=== PATIENT | female | born 1985 | race Caucasian/White ===

== ENCOUNTER 2023-11-05 08:18 | Emergency (ER) | payer OTHER, SELFPAY ==
[2023-11-05] VITALS (54 sets, daily range): BP systolic 87–143; BP diastolic 50–84; PULSE 62–98; RESP 7–29; TEMP 36.7; O2SAT 96–100; BMI 30.1
--- NOTE | 2023-11-05 08:38 | DI.RAD.S_ITS ---
PROCEDURE: XR CHEST 1V INDICATIONS: Shortness of breath TECHNIQUE: One view of the chest was acquired. COMPARISON: None. FINDINGS: Surgical changes and devices: None. Lungs and pleura: Lungs are clear. No pleural effusions or pneumothorax. Mediastinum: Mediastinal contours appear normal. Heart size is normal. Bones and chest wall: No suspicious bony lesions. Overlying soft tissues appear unremarkable. IMPRESSION: No acute cardiopulmonary abnormality is seen. Dictated by: Melquiades León M.D. on 11/05/2023 at 9:10 Approved by: Melquiades León M.D. on 11/05/2023 at 9:11
--- NOTE | 2023-11-05 09:18 | ED_ITS ---
HPI - General Adult General Chief complaint: Shortness of Breath/Dyspnea Stated complaint: Shortness of breath, Kidneys are hurting Time Seen by Provider: 11/05/23 08:21 Source: patient and family Mode of arrival: Wheelchair History of Present Illness HPI narrative: Patient is a 38-year-old female. Two weeks ago she was diagnosed with a urinary tract infection. She was started on Keflex. She stated that she actually missed a couple doses of the medicine and did not completely finish the course however all of her urinary symptoms have resolved. She is having some kidney pain. No fevers. No vomiting. She also stating that she was having some shortness of breath. No abdominal pain. No change in bowel habits. No skin rashes. She has had multiple episodes over the past several weeks/months of feeling very lightheaded and dizzy. She stated that she has been seen before. She states that her heart rate drops and also her blood pressure drops. She has not followed up with Cardiology. Initially she reported that it seems to be associated with getting blood drawn but there was a episode about 1 week ago when she was driving where she became lightheaded. Related Data Allergies Allergy/AdvReac Type Severity Reaction Status Date / Time No Known Drug Allergies Allergy Verified 11/05/23 08:39 Review of Systems Review of Systems ROS Unobtainable: All systems reviewed & are unremarkable except as noted in HPI and below Patient History Social History Smoking Status: Never smoker Smoking Status: Never smoker alcohol intake frequency: other Substance Use Type: does not use Exam Initial Vital Signs Initial Vital Signs: Vital Signs Pulse Rate 85 11/05/23 08:38 Pulse Oximetry 97 11/05/23 08:38 HENMT Head: normal to inspection and normocephalic Resp Effort & Inspection: normal respiratory effort Auscultation: clear to auscultation bilaterally Cardio Rate: regular rate Rhythm: regular rhythm GI Inspection: normal to inspection and non-distended Skin General: no rashes or lesions noted Neuro General: patient alert, patient awake, patient oriented x3 and moves all extremities Extrem General: normal to inspection and capillary refill normal Course Orders Ordered: ED Orders 11/05/23 08:38 XR chest 1V Stat 11/05/23 09:19 EKG-12 Lead Stat 11/05/23 09:22 Complete Blood Count AUTO DIFF Stat Comprehensive Metabolic Panel Stat Lactate (Lactic Acid) Stat Lipase Stat Procalcitonin Stat 11/05/23 09:40 Blood Culture Stat 11/05/23 09:46 Covid-19 + FLU A/B + RSV - PCR Stat 11/05/23 10:55 Urine Culture Stat Urine Microscopic Stat 11/05/23 11:45 CT abdomen pelvis w con Stat Discontinued Medications Sodium Chloride (Normal Saline 0.9%) 1,000 mls @ 1,000 mls/hr IV BOLUS ONE Stop: 11/05/23 10:18 Last Infusion: 11/05/23 09:53 Dose: Infused Documented By: Admin: 11/05/23 09:25 Dose: 1,000 mls/hr Documented By: RB Ketorolac Tromethamine (Ketorolac 30 Mg/Ml Vial) 30 mg IV NOW ONE Stop: 11/05/23 11:37 Last Admin: 11/05/23 11:46 Dose: 30 mg Documented By: SAM Vital Signs Vital signs: Vital Signs - 8 hr 11/05/23 08:38 11/05/23 08:39 11/05/23 09:00 Temperature 98.0 F Pulse Rate 85 82 83 Respiratory Rate 18 18 Blood Pressure 143/84 H Pulse Oximetry 97 98 97 Oxygen Delivery Method Room Air 11/05/23 09:18 11/05/23 09:18 11/05/23 09:21 Temperature Pulse Rate 64 69 Respiratory Rate Blood Pressure 87/51 L Pulse Oximetry 97 100 Oxygen Delivery Method 11/05/23 09:21 11/05/23 09:30 11/05/23 09:33 Temperature Pulse Rate 69 Respiratory Rate 20 Blood Pressure 100/57 L 104/63 Pulse Oximetry 100 Oxygen Delivery Method 11/05/23 09:33 11/05/23 09:35 11/05/23 09:35 Temperature Pulse Rate 77 69 Respiratory Rate 15 25 H Blood Pressure 113/68 Pulse Oximetry 100 99 Oxygen Delivery Method 11/05/23 09:40 11/05/23 09:40 11/05/23 09:45 Temperature Pulse Rate 79 Respiratory Rate 25 H Blood Pressure 119/71 129/74 Pulse Oximetry 100 Oxygen Delivery Method 11/05/23 09:45 11/05/23 09:50 11/05/23 09:50 Temperature Pulse Rate 98 H 75 Respiratory Rate 16 16 Blood Pressure 124/65 Pulse Oximetry 97 100 Oxygen Delivery Method 11/05/23 09:55 11/05/23 09:55 11/05/23 10:00 Temperature Pulse Rate 82 Respiratory Rate 10 L Blood Pressure 130/70 130/67 Pulse Oximetry 100 Oxygen Delivery Method 11/05/23 10:00 11/05/23 10:05 11/05/23 10:05 Temperature Pulse Rate 77 73 Respiratory Rate 17 16 Blood Pressure 130/69 Pulse Oximetry 100 98 Oxygen Delivery Method 11/05/23 10:10 11/05/23 10:10 11/05/23 10:15 Temperature Pulse Rate 73 Respiratory Rate 13 Blood Pressure 126/66 120/63 Pulse Oximetry 100 Oxygen Delivery Method 11/05/23 10:15 11/05/23 10:20 11/05/23 10:20 Temperature Pulse Rate 84 81 Respiratory Rate 15 16 Blood Pressure 117/62 Pulse Oximetry 97 97 Oxygen Delivery Method 11/05/23 10:25 11/05/23 10:25 11/05/23 10:30 Temperature Pulse Rate 80 Respiratory Rate 13 Blood Pressure 117/60 121/59 L Pulse Oximetry 97 Oxygen Delivery Method 11/05/23 10:30 11/05/23 10:35 11/05/23 10:35 Temperature Pulse Rate 81 88 Respiratory Rate 14 16 Blood Pressure 122/62 Pulse Oximetry 98 98 Oxygen Delivery Method 11/05/23 10:40 11/05/23 10:40 11/05/23 10:50 Temperature Pulse Rate 75 Respiratory Rate 13 Blood Pressure 118/59 L 127/69 Pulse Oximetry 97 Oxygen Delivery Method 11/05/23 10:50 11/05/23 10:55 11/05/23 10:55 Temperature Pulse Rate 88 86 Respiratory Rate 13 12 Blood Pressure 125/80 Pulse Oximetry 99 98 Oxygen Delivery Method 11/05/23 11:00 11/05/23 11:00 11/05/23 11:05 Temperature Pulse Rate 87 Respiratory Rate 15 Blood Pressure 122/74 121/68 Pulse Oximetry 97 Oxygen Delivery Method 11/05/23 11:05 11/05/23 11:10 11/05/23 11:10 Temperature Pulse Rate 90 86 Respiratory Rate 21 7 L Blood Pressure 120/67 Pulse Oximetry 96 98 Oxygen Delivery Method 11/05/23 11:15 11/05/23 11:15 11/05/23 11:20 Temperature Pulse Rate 89 Respiratory Rate 14 Blood Pressure 117/68 114/69 Pulse Oximetry 97 Oxygen Delivery Method 11/05/23 11:20 11/05/23 11:25 11/05/23 11:25 Temperature Pulse Rate 89 88 Respiratory Rate 13 16 Blood Pressure 120/72 Pulse Oximetry 97 98 Oxygen Delivery Method Room Air 11/05/23 11:30 11/05/23 11:30 11/05/23 11:35 Temperature Pulse Rate 81 Respiratory Rate 14 Blood Pressure 121/71 113/63 Pulse Oximetry 98 Oxygen Delivery Method 11/05/23 11:35 11/05/23 11:40 11/05/23 11:40 Temperature Pulse Rate 81 79 Respiratory Rate 15 15 Blood Pressure 113/65 Pulse Oximetry 99 99 Oxygen Delivery Method 11/05/23 11:45 11/05/23 11:45 11/05/23 11:51 Temperature Pulse Rate 79 75 Respiratory Rate 15 18 Blood Pressure 117/69 Pulse Oximetry 99 99 Oxygen Delivery Method 11/05/23 11:51 11/05/23 11:55 11/05/23 11:55 Temperature Pulse Rate 80 Respiratory Rate 18 Blood Pressure 110/68 111/72 Pulse Oximetry 98 Oxygen Delivery Method 11/05/23 12:00 11/05/23 12:00 11/05/23 12:20 Temperature Pulse Rate 82 Respiratory Rate 16 Blood Pressure 114/78 118/63 Pulse Oximetry 99 Oxygen Delivery Method 11/05/23 12:20 11/05/23 12:25 11/05/23 12:25 Temperature Pulse Rate 87 80 Respiratory Rate 11 L 11 L Blood Pressure 109/57 L Pulse Oximetry 98 99 Oxygen Delivery Method 11/05/23 12:30 11/05/23 12:31 11/05/23 12:31 Temperature Pulse Rate 73 71 Respiratory Rate 22 12 Blood Pressure 110/63 Pulse Oximetry 98 99 Oxygen Delivery Method 11/05/23 12:35 11/05/23 12:35 11/05/23 12:40 Temperature Pulse Rate 69 Respiratory Rate 11 L Blood Pressure 112/70 109/67 Pulse Oximetry 99 Oxygen Delivery Method Room Air 11/05/23 12:40 11/05/23 12:45 11/05/23 12:45 Temperature Pulse Rate 74 74 Respiratory Rate 12 10 L Blood Pressure 111/67 Pulse Oximetry 98 99 Oxygen Delivery Method 11/05/23 12:50 11/05/23 12:50 11/05/23 12:56 Temperature Pulse Rate 75 72 Respiratory Rate 29 H 17 Blood Pressure 120/69 Pulse Oximetry 99 100 Oxygen Delivery Method 11/05/23 12:56 11/05/23 13:00 11/05/23 13:06 Temperature Pulse Rate 70 Respiratory Rate 17 Blood Pressure 106/55 L 104/56 L Pulse Oximetry 97 Oxygen Delivery Method 11/05/23 13:06 11/05/23 13:10 11/05/23 13:10 Temperature Pulse Rate 72 73 Respiratory Rate 12 17 Blood Pressure 107/60 Pulse Oximetry 97 98 Oxygen Delivery Method 11/05/23 13:15 11/05/23 13:15 11/05/23 13:20 Temperature Pulse Rate 62 Respiratory Rate 15 Blood Pressure 108/55 L 98/51 L Pulse Oximetry 98 Oxygen Delivery Method 11/05/23 13:20 11/05/23 13:25 11/05/23 13:25 Temperature Pulse Rate 67 67 Respiratory Rate 19 15 Blood Pressure 95/50 L Pulse Oximetry 97 96 Oxygen Delivery Method 11/05/23 13:30 11/05/23 13:31 11/05/23 13:31 Temperature Pulse Rate 78 73 Respiratory Rate 17 16 Blood Pressure 109/58 L Pulse Oximetry 96 96 Oxygen Delivery Method 11/05/23 13:35 11/05/23 13:35 Temperature Pulse Rate 73 Respiratory Rate 17 Blood Pressure 107/55 L Pulse Oximetry 96 Oxygen Delivery Method Room Air Medical Decision Making Lab Data Lab results reviewed: Yes I reviewed the patient's lab results. 11/05/23 09:22 11/05/23 09:22 Labs: Lab Results 11/05/23 11/05/23 11/05/23 Range/Units 09:22 09:46 10:55 WBC 7.8 (4.5-11.0) X10^3/uL RBC 4.78 (4.0-5.2) X10^6/uL Hgb 14.1 (12.0-16.0) g/dL Hct 41.4 (36-46) % MCV 86.4 (80-100) fL MCH 29.5 (26-34) PG MCHC 34.1 (30-36) % RDW 13.2 (11.6-14.8) % Plt Count 262 (150-400) X10^3/uL Neut % (Auto) 63.9 (50-75) % Lymph % (Auto) 21.7 L (25-40) % [place] % (Auto) 9.1 (3-14) % Eos % (Auto) 4.9 H (2-4) % Baso % (Auto) 0.4 (0-2) % Neut # (Auto) 5000 (2381-4967) /uL Lymph # (Auto) 1700 (2332-6073) /uL [place] # (Auto) 700 (0-900) /uL Eos # (Auto) 400 (0-450) /uL Baso # (Auto) 0 (0-100) /uL Sodium 139 (137-145) mmol/L Potassium 3.7 (3.4-5.1) mmol/L Chloride 107 (98-107) mmol/L Carbon Dioxide 25 (22-32) mmol/L BUN 10 (7-17) mg/dL Creatinine 0.47 L (0.52-1.04) mg/dL Estimated GFR > 60 (>60) mL/min BUN/Creatinine Ratio 21.3 (6-22) Glucose 128 H (70-100) mg/dL Lactate 1.4 (0.7-2.1) mmol/L Calcium 9.2 (8.4-10.2) mg/dL Total Bilirubin 0.6 (0.2-1.3) mg/dL AST 37 H (14-36) IU/L ALT 51 H (<35) IU/L Alkaline Phosphatase 69 (38-126) U/L Total Protein 8.1 (6.3-8.2) g/dL Albumin 4.8 (3.5-5.0) g/dL Globulin 3.3 (1.7-4.1) g/dL Albumin/Globulin Ratio 1.5 (1.0-2.8) Lipase 39 (23-300) U/L Procalcitonin 0.04 (<0.5) ng/mL Urine RBC None seen (0-5/HPF) Urine WBC 5-10/hpf H (0-5/HPF) Ur Squamous Epith Cells 1-5 /hpf (0-5/HPF) Urine Bacteria None seen (None) Ur Culture Indicated? Specimen cultured Vol Urine Centrifuged 10ml (spun) SARS-CoV-2 (PCR) Negative (Negative) Influenza A (RT-PCR) Flu a negative (NEGATIVE) Influenza B (RT-PCR) Flu b negative (NEGATIVE) RSV (PCR) Negative (Negative) Point of Care Testing Test Results Negative Urine Dip Bedside Urine Glucose Negative Bedside Urine Bilirubin - Negative Bedside Urine Ketone - Negative Urine Specific [place] 1.015 Bedside Urine Occult Blood - Negative Bedside Urine pH 7.5 Bedside Urine Protein - Negative Bedside Urine Urobilinogen - Negative Bedside Urine Nitrite - Negative Bedside Urine Leukocytes + 70 Esterase Point of care testing: Point of Care Testing Test Results Negative Urine Dip Bedside Urine Glucose Negative Bedside Urine Bilirubin - Negative Bedside Urine Ketone - Negative Urine Specific [place] 1.015 Bedside Urine Occult Blood - Negative Bedside Urine pH 7.5 Bedside Urine Protein - Negative Bedside Urine Urobilinogen - Negative Bedside Urine Nitrite - Negative Bedside Urine Leukocytes + 70 Esterase Imaging Data Chest x-ray: Radiologist's Impression: PROCEDURE: XR CHEST 1V INDICATIONS: Shortness of breath TECHNIQUE: One view of the chest was acquired. COMPARISON: None. FINDINGS: Surgical changes and devices: None. Lungs and pleura: Lungs are clear. No pleural effusions or pneumothorax. Mediastinum: Mediastinal contours appear normal. Heart size is normal. Bones and chest wall: No suspicious bony lesions. Overlying soft tissues appear unremarkable. IMPRESSION: No acute cardiopulmonary abnormality is seen. CT scan - abdomen/pelvis: Radiologist's Impression: PROCEDURE: CT ABDOMEN PELVIS W CON INDICATIONS: RLQ pain and flank pain TECHNIQUE: After the administration of intravenous contrast, axial sections acquired from the lung bases to the pubic symphysis. Coronal and sagittal reformats were performed. For radiation dose reduction, the following was used: automated exposure control, adjustment of mA and/or kV according to patient size. COMPARISON: None. FINDINGS: Image quality: Diagnostic. Lower Chest: No significant findings. ABDOMEN: Liver: No solid mass. Very mild diffuse hepatic steatosis. Gallbladder: Numerous gallstones are present in the gallbladder. Gallbladder is not abnormally distended and there is no wall thickening. There is no fluid around the gallbladder. Biliary ducts: No biliary dilation. Pancreas: No ductal dilation. Spleen: Size is within normal limits. Adrenal Glands: No adrenal nodules. Kidneys and Ureters: No hydronephrosis. No solid mass. No complex renal cystic lesion which requires follow up. Stomach and Bowel: Normal colonic caliber, without significant wall thickening. Surgical absence of the appendix. Moderate fecal load. Peritoneum: No abnormal intraperitoneal fluid. No free air. Ventral Wall: No significant ventral hernia. Abdominal Nodes: No retroperitoneal or mesenteric adenopathy by size criteria. Vessels: Aorta and inferior vena cava are normal in size. PELVIS: Pelvic Organs: Unremarkable. Bladder: No bladder wall thickening, accounting for underdistention. Pelvic Nodes: No enlarged lymph nodes. Miscellaneous: No inguinal hernias are seen. Bones: No aggressive osseous abnormality. Chronic mild disc protrusion at L5-S1 without significant canal stenosis. IMPRESSION: 1. Cholelithiasis without evidence of cholecystitis. 2. Remote appendectomy. 3. No acute abdominal process noted ECG Data Attestation: I personally reviewed and interpreted this ECG as follows: Interpretation: Sinus rhythm Ventricular rate is 79 Normal axis Normal QRS Normal QTC No ST T wave changes MDM Narrative Medical decision making narrative: Workup here in the emergency department is very reassuring. I have low suspicion that she is pyelonephritis. She does have gallstones on the CT scan but no other signs of acute cholecystitis. She was afebrile. The urine culture was pending and we will hold on starting any antibiotics until his culture results. No signs of pneumonia. She did have an episode here in the ER where she became bradycardic and hypotensive. She recovered from this on her own. It appears that she has had some prior episodes of this with 1 potentially being when she was driving. She has had a Holter monitor in the past but that was years ago. Her workup here in the emergency department does not give a specific etiology however there does not appear to be a infectious or surgical process. I did recommend that she contact her primary doctor as she most likely benefit from a referral to see Cardiology. She was given return precautions and follow- up instructions. She expressed understanding and agreement. Discharge Plan Departure Patient Disposition: Home Clinical Impression: Abdominal pain, Shortness of breath, Episodic lightheadedness Instructions: DI for Abdominal Pain-Adult Activity Restrictions/Additional Instructions: Your workup here in the emergency department is very reassuring. There is a urine culture pending at the time of your discharge and we will contact you if we need to restart any antibiotics. I do think that you need to follow-up with cardiology. You can talk with your primary doctor's note referral. Return to the emergency department for new or worsening symptoms. Referrals: Provider,Madeleine MARIE [Primary Care Provider] - Precious Barahona MD [Physician] - Stand Alone Forms: Patient Portal/API
[2023-11-05] MEDS: SODIUM CHLORIDE 0.9% 1,000 ML 1000 ML IV (09:25)
[2023-11-05 09:36] LABS: Add Manual Diff / Slide Review NO; Basophils Absolute Auto 0 /uL (0-100); Basophils Percent Auto 0.4 % (0-2); Eosinophils Absolute Auto 400 /uL (0-450); Eosinophils Percent Auto 4.9 % (2-4); Hematocrit 41.4 % (36-46); Hemoglobin 14.1 g/dL (12.0-16.0); Lymphocytes Absolute Auto 1700 /uL (1100-4500); Lymphocytes Percent Auto 21.7 % (25-40); Mean Corpuscular HGB Conc 34.1 % (30-36); Mean Corpuscular Hemoglobin 29.5 PG (26-34); Mean Corpuscular Volume 86.4 fL (80-100); Monocytes Absolute Auto 700 /uL (0-900); Monocytes Percent Auto 9.1 % (3-14); Neutrophils Absolute Auto 5000 /uL (1500-7000); Neutrophils Percent Auto 63.9 % (50-75); Platelet Count 262 X10^3/uL (150-400); Red Blood Cell Count 4.78 X10^6/uL (4.0-5.2); Red Cell Distribution Width 13.2 % (11.6-14.8); White Blood Cell Count 7.8 X10^3/uL (4.5-11.0)
[2023-11-05 09:47] LABS: Lactate (Lactic Acid) 1.4 mmol/L (0.7-2.1)
[2023-11-05 09:49] LABS: Alanine Aminotransferase 51 IU/L (<35); Albumin 4.8 g/dL (3.5-5.0); Albumin Globulin Ratio 1.5 (1.0-2.8); Alkaline Phosphatase 69 U/L (38-126); Aspartate Aminotransferase 37 IU/L (14-36); BUN Creatinine Ratio 21.3 (6-22); Bilirubin Total 0.6 mg/dL (0.2-1.3); Blood Urea Nitrogen 10 mg/dL (7-17); Calcium 9.2 mg/dL (8.4-10.2); Carbon Dioxide 25 mmol/L (22-32); Chloride 107 mmol/L (98-107); Estimated Glomerular Filt Rate > 60 mL/min (>60); Globulin 3.3 g/dL (1.7-4.1); Glucose 128 mg/dL (70-100); HEMOLYSIS 23 (0-50); Lipase 39 U/L (23-300); Potassium 3.7 mmol/L (3.4-5.1); Sodium 139 mmol/L (137-145); Total Protein 8.1 g/dL (6.3-8.2)
[2023-11-05 10:04] LABS: Procalcitonin 0.04 ng/mL (<0.5)
[2023-11-05 10:27] LABS: Influenza A - CEPHEID Flu A NEGATIVE (NEGATIVE); Influenza B - CEPHEID Flu B NEGATIVE (NEGATIVE); Respiratory Syncytial Virus Negative (Negative)
[2023-11-05 10:28] LABS: COVID-19 CEPHEID 4-PLEX PCR Negative (Negative)
[2023-11-05 11:06] LABS: Urine Volume 10mL (spun)
[2023-11-05 11:07] LABS: Bacteria Urine None Seen; Culture Indicated Urine Specimen Cultured; RBC Urine None Seen (0-5/HPF); Squamous Epithelial Cell Urine 1-5 /HPF (0-5/HPF); WBC Urine 5-10/HPF (0-5/HPF)
--- NOTE | 2023-11-05 11:45 | DI.CT.S_ITS ---
PROCEDURE: CT ABDOMEN PELVIS W CON INDICATIONS: RLQ pain and flank pain TECHNIQUE: After the administration of intravenous contrast, axial sections acquired from the lung bases to the pubic symphysis. Coronal and sagittal reformats were performed. For radiation dose reduction, the following was used: automated exposure control, adjustment of mA and/or kV according to patient size. COMPARISON: None. FINDINGS: Image quality: Diagnostic. Lower Chest: No significant findings. ABDOMEN: Liver: No solid mass. Very mild diffuse hepatic steatosis. Gallbladder: Numerous gallstones are present in the gallbladder. Gallbladder is not abnormally distended and there is no wall thickening. There is no fluid around the gallbladder. Biliary ducts: No biliary dilation. Pancreas: No ductal dilation. Spleen: Size is within normal limits. Adrenal Glands: No adrenal nodules. Kidneys and Ureters: No hydronephrosis. No solid mass. No complex renal cystic lesion which requires follow up. Stomach and Bowel: Normal colonic caliber, without significant wall thickening. Surgical absence of the appendix. Moderate fecal load. Peritoneum: No abnormal intraperitoneal fluid. No free air. Ventral Wall: No significant ventral hernia. Abdominal Nodes: No retroperitoneal or mesenteric adenopathy by size criteria. Vessels: Aorta and inferior vena cava are normal in size. PELVIS: Pelvic Organs: Unremarkable. Bladder: No bladder wall thickening, accounting for underdistention. Pelvic Nodes: No enlarged lymph nodes. Miscellaneous: No inguinal hernias are seen. Bones: No aggressive osseous abnormality. Chronic mild disc protrusion at L5-S1 without significant canal stenosis. IMPRESSION: 1. Cholelithiasis without evidence of cholecystitis. 2. Remote appendectomy. 3. No acute abdominal process noted. Dictated by: Brennen Snider M.D. on 11/05/2023 at 12:26 Approved by: Brennen Snider M.D. on 11/05/2023 at 12:29
[2023-11-05] MEDS: KETOROLAC 30 MG/ML VIAL IV (11:46)
== END 2023-11-05 14:00 | disposition home or self-care (01) ==
PROVIDERS: Emergency Provider Emergency Medicine
DX: R10.31 Right lower quadrant pain (principal); R06.02 Shortness of breath; R42 Dizziness and giddiness; I95.9 Hypotension, unspecified; Z20.822 Contact with and (suspected) exposure to COVID-19
CPT/HCPCS: 0241U; 36415; 71045; 74177; 80053; 81003; 81015; 81025; 83605; 83690; 84145; 85025; 87040; 87086; 93005; 93010; 96374; 99284; J1885; Q9967

== ENCOUNTER 2023-11-12 09:14 | Emergency (ER) | payer OTHER, SELFPAY ==
[2023-11-12 09:24] VITALS: BP 118/74; PULSE 84; RESP 18; TEMP 36.4; O2SAT 98; BMI 30.4
--- NOTE | 2023-11-12 10:07 | ED_ITS ---
HPI - General Adult General Chief complaint: Urogenital-Female Stated complaint: UTI/ Yeast infection ,Ovarian pain both sides Time Seen by Provider: 11/12/23 09:54 History of Present Illness HPI narrative: 38-year-old woman with no significant medical history presents with 3 days of ongoing significant malaise, lower abdominal pain, bilateral flank pain. She was concerned she had a urinary tract infection was seen at [facility] started on Keflex developed a vaginal yeast infection that has since been treated with fluconazole. She was seen in our emergency department on November 04. work uip was unremarkable with no UTI, negative blood cultures, normal chest x- ray, CT scan of the abdomen did not show any acute findings. She has had her appendix out, gallbladder did have gallstones but did not appear to be acutely inflamed, diverticulosis without diverticulitis. She comes in today with persistent symptoms overall general malaise the point that she is unable to get out of bed and be functional. Chest x-ray did not suggest cardiopulmonary pathology, no cardiomegaly. She does not describe recent viral infections Related Data Previous Rx's Medication Instructions Recorded doxycycline hyclate 100 mg capsule 100 mg PO BID #20 caps 11/12/23 Allergies Allergy/AdvReac Type Severity Reaction Status Date / Time No Known Drug Allergies Allergy Verified 11/05/23 08:39 Review of Systems Review of Systems Narrative: Pertinent positive and negative findings as per HPI Patient History Social History Smoking Status: Never smoker Smoking Status: Never smoker alcohol intake frequency: other Substance Use Type: does not use Exam Initial Vital Signs Initial Vital Signs: Vital Signs Temperature 97.6 F 11/12/23 09:24 Pulse Rate 84 11/12/23 09:24 Respiratory Rate 18 11/12/23 09:24 Blood Pressure 118/74 11/12/23 09:24 Pulse Oximetry 98 11/12/23 09:24 Oxygen Delivery Method Room Air 11/12/23 09:24 General: Healthy appearing, fatigued appearing but in no acute distress. Able to give a complete and coherent history. Well-nourished well-developed HEENT: Moist mucous membranes, normal sclera with reactive pupils, Neck: No cervical adenopathy Respiratory: Lungs are clear to auscultation, no wheezing no rales no rhonchi. Full and symmetrical air movement Cardiac: Regular rate and rhythm no murmurs no bruits Abdomen: Soft, minor tenderness in the lower abdomen without rebound or guarding. No flank pain Skin: Warm and dry, no rashes Neurologic: Globally weak but otherwise Grossly neurologically intact with no obvious asymmetries or abnormalities Extremities: No trauma, well perfused Psych: Cooperative, appropriate insight and affect Course Orders Ordered: ED Orders 11/12/23 10:22 CT head/brain wo con Stat 11/12/23 10:43 Complete Blood Count AUTO DIFF Stat Comprehensive Metabolic Panel Stat Lactate (Lactic Acid) Stat Lipase Stat Magnesium Stat NT-proBNP (BNP-Adult 18+) Stat TSH w/ Reflex to FT4 Stat Discontinued Medications Sodium Chloride (Normal Saline 0.9%) 1,000 mls @ 1,000 mls/hr IV BOLUS ONE Stop: 11/12/23 11:20 Last Infusion: 11/12/23 11:55 Dose: Infused Documented By: Admin: 11/12/23 10:43 Dose: 1,000 mls/hr Documented By: IMANI Vital Signs Vital signs: Vital Signs - 8 hr 11/12/23 09:24 Temperature 97.6 F Pulse Rate 84 Respiratory Rate 18 Blood Pressure 118/74 Pulse Oximetry 98 Oxygen Delivery Method Room Air Medical Decision Making Lab Data 11/12/23 10:43 11/12/23 10:43 Labs: Lab Results 11/12/23 Range/Units 10:43 WBC 11.1 H (4.5-11.0) X10^3/uL RBC 4.65 (4.0-5.2) X10^6/uL Hgb 13.8 (12.0-16.0) g/dL Hct 40.2 (36-46) % MCV 86.5 (80-100) fL MCH 29.7 (26-34) PG MCHC 34.3 (30-36) % RDW 13.1 (11.6-14.8) % Plt Count 256 (150-400) X10^3/uL Neut % (Auto) 77.2 H (50-75) % Lymph % (Auto) 14.0 L (25-40) % Newberry % (Auto) 6.6 (3-14) % Eos % (Auto) 1.9 L (2-4) % Baso % (Auto) 0.3 (0-2) % Neut # (Auto) 8600 H (4015-4145) /uL Lymph # (Auto) 1600 (4093-1968) /uL Newberry # (Auto) 700 (0-900) /uL Eos # (Auto) 200 (0-450) /uL Baso # (Auto) 0 (0-100) /uL Sodium 137 (137-145) mmol/L Potassium 4.0 (3.4-5.1) mmol/L Chloride 109 H (98-107) mmol/L Carbon Dioxide 20 L (22-32) mmol/L BUN 13 (7-17) mg/dL Creatinine 0.53 (0.52-1.04) mg/dL Estimated GFR > 60 (>60) mL/min BUN/Creatinine Ratio 24.5 H (6-22) Glucose 115 H (70-100) mg/dL Lactate 1.2 (0.7-2.1) mmol/L Calcium 8.9 (8.4-10.2) mg/dL Magnesium 2.1 (1.6-2.3) mg/dL Total Bilirubin 0.6 (0.2-1.3) mg/dL AST 24 (14-36) IU/L ALT 39 H (<35) IU/L Alkaline Phosphatase 74 (38-126) U/L NT-Pro-B Natriuret Pep < 20 (<125) pg/mL Total Protein 7.6 (6.3-8.2) g/dL Albumin 4.6 (3.5-5.0) g/dL Globulin 3.0 (1.7-4.1) g/dL Albumin/Globulin Ratio 1.5 (1.0-2.8) Lipase 42 (23-300) U/L TSH 1.21 (0.47-4.68) uIU/mL MDM Narrative Medical decision making narrative: CC: 3 weeks of persistent severe fatigue, lower abdominal tenderness Complicating co-morbidities: This is now her 5th ER visit with a primary care visit as well. Data collected from: patient patient Social determinants of health that may influence the patients condition: Medical records reviewed: Workup from November 04 is reviewed, summarized in the HPI. Differential considered: Cardiomyopathy, viral syndrome, severe anemia, hypothyroidism, infection, given negative workup and persistent exam possibility of intracranial masses considered Exam documented above, pertinent findings include: Global weakness, mild lower abdominal tenderness, no rebound or guarding exam is otherwise benign Lab Test results independently reviewed as above. Pertinent findings: CBC is reassuring. Mild leukocytosis at 11.1 without left shift. No anemia Chemistries are unremarkable. AST is almost back to her baseline has been elevated a week ago. With evaluation on November 04, Urine had white cells but no other sequelae to suggest bladder infection, she was negative for flu RSV and COVID. Imaging studies independently reviewed: CT scan of the abdomen was done on November 04 for similar complaint and was otherwise unremarkable. There was no indication for repeat imaging studies at this time CT scan of the head done today for continued weakness and malaise is unremarkable Re-evaluations: Patient is still perplexed about the complexity of her symptoms. She has been on a Z-Estevan as well as Septra for urinary tract infection, Diflucan for yeast infection secondary to the antibiotics. She does not describe any new sexual partners. Genital/pelvic exam is performed. She is some minor irritation, no significant discharge minor cervical motion tenderness. We will check gonorrhea and chlamydia with her urine. We discussed treating her for presumed pelvic inflammatory disease with doxycycline and she was interested in giving that a try. They had continued multiple questions about why she may have had a near syncopal episode while driving, why she continues to be so fatigued. I explained that I did not have answers and sometimes the best I am able to do from the emergency department is reassured all of us that you do not have a life-threatening issue but you need to go back to your primary care physician for more definitive diagnosis. Discharge Plan Departure Patient Disposition: Home Clinical Impression: Acute pelvic inflammatory disease Abdominal tenderness Qualifiers: Abdominal location: unspecified location Presence of rebound: absent Qualified Code(s): R10.819 - Abdominal tenderness, unspecified site Instructions: DI for Pelvic Inflammatory Disease (PID) Activity Restrictions/Additional Instructions: Thank you for coming in today I am sorry I do not have a definitive diagnosis for everything. I am not seeing signs of sepsis, any overwhelming infection, kidney or liver problems, no significant anemia. There was no evidence of heart attack. With review of ER visits from [facility] and here on the there does not appear to be any obvious abnormalities. The pelvic CT on the was very reassuring. The head CT we did today does not show any acute abnormalities Based on your clinical exam and pelvic tenderness, I am going to suggest that we treat you for pelvic inflammatory disease. This is doxycycline, an antibiotic for 10 days. If this is the source of your difficulty you should start feeling better within 3-4 days. We did send your urine to look for gonorrhea and chlamydia and you will be contacted if these do returned positive. I also asked for a urine culture. Sometimes when you have been on antibiotics the microscopic and dip portions are equivocal. Doxycycline is a reasonable antibiotic for bladder infections as well The doxycycline prescription was electronically transmitted to [facility] in [place] If you are continuing to have lower pelvic pain, the next specialty to consider for consultation would probably be urogynecology. I would encourage you to follow up with your primary care physician. Prescriptions: New doxycycline hyclate 100 mg capsule 100 mg PO BID Qty: 20 0RF Referrals: ProviderMadeleine [Primary Care Provider] - Stand Alone Forms: Patient Portal/API
[2023-11-12 10:09] VITALS: PULSE 83; RESP 17
--- NOTE | 2023-11-12 10:22 | DI.CT.S_ITS ---
PROCEDURE: CT HEAD/BRAIN WO CON INDICATIONS: persistent and unrelenting fatigue TECHNIQUE: Noncontrast 4.5 mm thick angled axial sections acquired from the foramen magnum to the vertex, with coronal and sagittal reformats. For radiation dose reduction, the following was used: automated exposure control, adjustment of mA and/or kV according to patient size. COMPARISON: None. FINDINGS: Image quality: Diagnostic. CSF spaces: Basal cisterns are patent. No extra-axial fluid collections. Ventricles are normal in size and shape. Brain: No midline shift. No intracranial masses or hemorrhage. Ravi-white matter interface is normal. Skull and face: Calvarium and visualized facial bones are intact, without suspicious lesions. Sinuses: Visualized sinuses and mastoids are clear. IMPRESSION: No acute intracranial pathology. Dictated by: Brennen Snider M.D. on 11/12/2023 at 11:26 Approved by: Brennen Snider M.D. on 11/12/2023 at 11:26
[2023-11-12 10:30] VITALS: BP 133/83; PULSE 78; RESP 18; O2SAT 96
[2023-11-12] MEDS: SODIUM CHLORIDE 0.9% 1,000 ML 1000 ML IV (10:43)
[2023-11-12 11:09] VITALS: BP 132/81; PULSE 76; O2SAT 98
[2023-11-12 11:14] LABS: Add Manual Diff / Slide Review NO; Basophils Absolute Auto 0 /uL (0-100); Basophils Percent Auto 0.3 % (0-2); Eosinophils Absolute Auto 200 /uL (0-450); Eosinophils Percent Auto 1.9 % (2-4); Hematocrit 40.2 % (36-46); Hemoglobin 13.8 g/dL (12.0-16.0); Lymphocytes Absolute Auto 1600 /uL (1100-4500); Mean Corpuscular HGB Conc 34.3 % (30-36); Mean Corpuscular Hemoglobin 29.7 PG (26-34); Mean Corpuscular Volume 86.5 fL (80-100); Monocytes Absolute Auto 700 /uL (0-900); Monocytes Percent Auto 6.6 % (3-14); Neutrophils Absolute Auto 8600 /uL (1500-7000); Neutrophils Percent Auto 77.2 % (50-75); Platelet Count 256 X10^3/uL (150-400); Red Blood Cell Count 4.65 X10^6/uL (4.0-5.2); Red Cell Distribution Width 13.1 % (11.6-14.8); White Blood Cell Count 11.1 X10^3/uL (4.5-11.0)
[2023-11-12 11:16] LABS: Alanine Aminotransferase 39 IU/L (<35); Albumin 4.6 g/dL (3.5-5.0); Albumin Globulin Ratio 1.5 (1.0-2.8); Alkaline Phosphatase 74 U/L (38-126); Aspartate Aminotransferase 24 IU/L (14-36); BUN Creatinine Ratio 24.5 (6-22); Bilirubin Total 0.6 mg/dL (0.2-1.3); Blood Urea Nitrogen 13 mg/dL (7-17); Calcium 8.9 mg/dL (8.4-10.2); Carbon Dioxide 20 mmol/L (22-32); Chloride 109 mmol/L (98-107); Estimated Glomerular Filt Rate > 60 mL/min (>60); Glucose 115 mg/dL (70-100); HEMOLYSIS < 15 (0-50); Lactate (Lactic Acid) 1.2 mmol/L (0.7-2.1); Lipase 42 U/L (23-300); Magnesium 2.1 mg/dL (1.6-2.3); Sodium 137 mmol/L (137-145); Total Protein 7.6 g/dL (6.3-8.2)
[2023-11-12 11:25] LABS: NT-proBNP (BNP-Adult 18+) < 20 pg/mL (<125)
[2023-11-12 11:47] LABS: TSH w/ Reflex to FT4 1.21 uIU/mL (0.47-4.68)
[2023-11-12 14:13] LABS: Urine N gonorrhoeae NOT DETECTED
[2023-11-12 14:21] LABS: Urine Chlamydia NOT DETECTED
== END 2023-11-12 12:31 | disposition home or self-care (01) ==
PROVIDERS: Emergency Provider Emergency Medicine
DX: N73.0 Acute parametritis and pelvic cellulitis (principal); R53.81 Other malaise
CPT/HCPCS: 36415; 70450; 80053; 83605; 83690; 83735; 83880; 84443; 85025; 87086; 87491; 87591; 99283; 99284

== ENCOUNTER → 2024-03-05 13:43 | Outpatient (CLI) | payer OTHER, SELFPAY ==
--- NOTE | 2024-03-05 13:44 | DI.ECHO.S_ITS ---
[facility] : : [address] : : [place] : : [id number] : : Phone: [phone] Echocardiogram Report + + :Name: YESSI MESA Study Date: 03/05/2024 Height: 68 in : :[facility] ReadingLocation: Weight: 200 lb : : Gender: Female BSA: 2.0 m2 : :: 1985 Age: 38 yrs BP: 132/87 mmHg: :Reason For Study: ATYPICAL CHEST PAIN : :Ordering Physician: MELISSA UREÑA Performed By: Taylor Alvarado : :Referring: MELISSA UREÑA : + + Interpretation Summary 1. The left ventricular contractility is normal. Estimated ejection fraction is greater than 60% with no segmental wall motion abnormalities. No LVH. Normal diastolic function. 2. The right ventricular contractility is normal. 3. All cardiac chambers are of normal size. 4. No significant valvular abnormalities. 5. No obvious intracardiac shunts. 6. No obvious intracardiac masses nor thrombi. 7. No hemodynamically significant pericardial effusion. 8. Low right-sided filling pressures. Conclusion: Normal biventricular function with no significant valvular nor structural abnormalities. Procedure: A two-dimensional transthoracic echocardiogram with color flow and Doppler was performed. The study quality was technically adequate. There is no prior echocardiogram noted for this patient. The patient was in sinus rhythm with heart rates between 58-78 bpm during the exam. Left Ventricle: The left ventricle is normal in size and wall thickness. The ejection fraction is estimated to be 60-65%. Right Ventricle: The right ventricle is normal in size and function. Atria: The left atrial size is normal. Right atrial size is normal. There is no Doppler evidence for an interatrial shunt. Mitral Valve: The mitral valve is normal in structure and function. There is no mitral regurgitation noted. Aortic Valve: The aortic valve is trileaflet. The aortic valve opens well. There is no aortic valve stenosis. No aortic regurgitation is present. Tricuspid Valve: The tricuspid valve is normal in structure and function. There is mild tricuspid regurgitation. The right ventricular systolic pressure is estimated to be at least 29 mmHg based on an estimated right atrial pressure of 3 mm Hg. Pulmonic Valve: The pulmonic valve leaflets are thin and pliable; valve motion is normal. There is trace pulmonic regurgitation. Great Vessels: The aortic root is normal size. The dimensions of the ascending aorta are normal. The IVC is of normal diameter and collapses greater than 50% with a sniff. This suggests a low right atrial pressure of 3 mm Hg. Pericardium/ Pleura There is no pericardial effusion. There is no pleural effusion. MMode/2D Measurements & Calculations LVIDd: 4.7 cm LVOT diam: 2.1 cm LVIDs: 3.0 cm Ao root diam: 3.1 cm FS: 35.6 % asc Aorta Diam: 3.7 cm IVSd: 0.80 cm Ao Arch Diam (Prox Trans): 2.4 cm LVPWd: 0.67 cm LV woodruff. diameter/BSA (cm/m^2): 2.3 LV sys. diameter/BSA (cm/m^2): 1.5 LA A2 area: 18.3 cm2 RA long axis: 5.0 cm LA A4 area: 15.1 cm2 RA area: 14.5 cm2 LA length (vol): 5.0 cm RA vol: 35.8 ml LA vol: 47.1 ml RA : 17.5 ml/m2 LA vol index: 23.0 ml/m2 IVC diam: 1.4 cm RVD1 (basal): 3.4 cm RVD2 (mid): 3.4 cm TAPSE: 2.3 cm Doppler Measurements & Calculations Ao V2 max: 156.6 cm/sec LVOT Max Carrillo: 112.3 cm/sec Ao V2 mean: 111.4 cm/sec LV V1 max P.0 mmHg Ao max P.8 mmHg LV V1 VTI: 24.0 cm Ao mean P.4 mmHg GIGI(I,D): 2.8 cm2 Ao V2 VTI: 29.7 cm GIGI(V,D): 2.5 cm2 sev ratio: 0.81 GIGI indexed to BSA (cm^2/m^2): 1.4 MV E max carrillo: 65.2 cm/sec TR max carrillo: 254.9 cm/sec MV A max carrillo: 58.2 cm/sec TR max P.0 mmHg MV E/A: 1.1 PA V2 max: 109.4 cm/sec Med Peak E' Carrillo: 9.7 cm/sec PA V2 mean: 80.8 cm/sec E/E' med: 6.7 PA mean P.8 mmHg Lat Peak E' Carrillo: 13.8 cm/sec PA pr(Accel): 32.8 mmHg E/E' lat: 4.7 E/e' average: 5.7 MV dec time: 0.27 sec SV(LVOT): 83.5 ml Reading Physician:
--- NOTE | 2024-03-05 13:45 | DI.NM.S_ITS ---
PROCEDURE: NM EXERCISE TREADMILL NON NUC COMPARISON: None. INDICATIONS: ATYPICAL CHEST PAIN FINDINGS: the patient exercised for 7 minutes and 51 seconds, reaching 92% of maximum predicted heart rate. 7.8METs, LETICIA +13%. Appropriate BP response to exercise. No diagnostic ST changes, no angina, and no ectopy during exercise or recovery. IMPRESSION: Low risk, normal treadmill ECG only stress test with mildly reduced exercise tolerance (7.8METs, LETICIA +13%). Dictated by: Precious Barahona MD on 03/05/2024 at 16:30 Approved by: Precious Barahona MD on 03/05/2024 at 16:31
== END ==
PROVIDERS: Referring Provider Internal Medicine; Visit Provider Internal Medicine
DX: I07.1 Rheumatic tricuspid insufficiency (principal); R07.89 Other chest pain
CPT/HCPCS: 93017; 93306